=== PATIENT | female | born 1985 | race American Indian/Alaskan Native ===

== ENCOUNTER 2016-12-29 23:15 | Emergency (ER) | payer SELFPAY ==
[2016-12-29 23:23] VITALS: BP 130/94
[2016-12-30 00:49] LABS: Alanine Aminotransferase 14 units/L (7-56); Albumin 3.9 g/dL (3.9-5); Albumin/Globulin Ratio 1.3 %; Alkaline Phosphatase 75 units/L (35-129); BUN/Creatinine Ratio 14.28; Bilirubin,Total 0.3 mg/dL (0.1-1.2); Blood Urea Nitrogen 10 mg/dL (7-17); Calcium 9.1 mg/dL (8.4-10.2); Carbon Dioxide 25 mmol/L (22-30); Chloride 101.6 mmol/L (98-107); Eosinophils % (Auto) 4.5 % (0.0-4.3); Glucose 92 mg/dL (65-100); Hematocrit 43.2 % (30.3-42.9); Hemoglobin 14.3 gm/dl (10.1-14.3); Mean Corpuscular HGB Conc 33 % (30-34); Mean Corpuscular Hemoglobin 34 pg (28-32); Mean Corpuscular Volume 102 fl (79-97); Platelet Count 262 K/mm3 (140-440); Potassium 3.6 mmol/L (3.6-5.0); Red Blood Count 4.23 M/mm3 (3.65-5.03); Sodium 139 mmol/L (137-145); Total Protein 6.8 g/dL (6.3-8.2); White Blood Count 9.7 K/mm3 (4.5-11.0)
[2016-12-30 00:50] LABS: Anion Gap 16 mmol/L
== END 2016-12-30 02:40 | disposition left against medical advice (07) ==
LOC: ED 23:15
DX: R10.30 Lower abdominal pain, unspecified (principal); R11.10 Vomiting, unspecified; R19.7 Diarrhea, unspecified; R30.0 Dysuria; Z53.21 Procedure and treatment not carried out due to patient leaving prior to being seen by health care provider
CPT/HCPCS: 36415; 80053; 85025